=== PATIENT | female | born 1950 | race Caucasian/White ===

== ENCOUNTER 2020-12-05 11:22 | Emergency (ER) | payer MEDICAID, MEDICARE ==
--- NOTE | 2020-12-05 12:30 | EDM.PDOC ---
<Marily Chandra - Last Filed: 12/05/20 12:57> ED HPI GENERAL MEDICAL PROBLEM - General Chief Complaint: Head Injury Stated Complaint: FELL Time Seen by Provider: 12/05/20 12:05 Source of Information: Reports: Patient, Family History Limitations: Reports: No Limitations - History of Present Illness INITIAL COMMENTS - FREE TEXT/NARRATIVE: 70 year old female with history of bilateral total knee arthroplasty arrives with complaints of left knee pain. She reports that saturday night she was walking outside and tripped over an extension cord, fell forward onto her knees and then onto face. She has ecchymosis and edema over orbit of left eye and upper cheek on right side. Bruising to bilateral knees but no obvious swelling or deformity. She reports that she has been able to bare weight but has experienced some increases in the frequency that her knee "nirav". She takes a daily baby asa. No other anticoagulation. No neuro changes, patient is mentating at baseline per . Onset: Gradual Onset Date: 12/03/20 Duration: Day(s): Location: Reports: Lower Extremity, Left Quality: Reports: Ache, Other (buckleing when walking) Severity: Moderate Improves with: Reports: Rest Worsens with: Reports: Movement Context: Reports: Activity (was walking and tripped over extension cord) Associated Symptoms: Reports: No Other Symptoms Left Knee Pain Score (Numeric/FACES): 6 Left Headache Pain Score (Numeric/FACES): 5 - Related Data Allergies Allergy/AdvReac Type Severity Reaction Status Date / Time acetaminophen Allergy Other Verified 12/05/20 11:59 [From Darvocet-N] codeine Allergy Vomiting Verified 12/05/20 11:59 propoxyphene Allergy Other Verified 12/05/20 11:59 [From Darvocet-N] Home Meds: Home Meds Ciprofloxacin [Cipro XR 500 MG Tablet] 500 mg PO BID 12/05/20 [History] Past Medical History 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: Musculoskeletal History: Reports: Osteoporosis Neurological History: Reports: Neuropathy, Peripheral - Infectious Disease History Infectious Disease History: Reports: Chicken Pox, Measles, Mumps - Past Surgical History GI Surgical History: Reports: Appendectomy, Bariatric Procedure, Cholecystectomy Neurological Surgical History: Reports: Laminectomy, Spinal Fusion Musculoskeletal Surgical History: Reports: Hip Replacement, Knee Replacement, Shoulder Surgery Social & Family History - Tobacco Use Tobacco Use Status *Q: Never Tobacco User - Caffeine Use Caffeine Use: Reports: Soda - Recreational Drug Use Recreational Drug Use: No ED ROS GENERAL - Review of Systems Review Of Systems: See Below Constitutional: Reports: No Symptoms. Denies: Fever, Chills, Malaise, Weakness HEENT: Reports: No Symptoms Respiratory: Reports: No Symptoms. Denies: Shortness of Breath, Wheezing, Cough Cardiovascular: Reports: No Symptoms. Denies: Chest Pain, Palpitations, Syncope Endocrine: Reports: No Symptoms GI/Abdominal: Reports: No Symptoms. Denies: Abdominal Pain, Black Stool, Diarrhea, Nausea, Vomiting : Reports: No Symptoms Musculoskeletal: Reports: Muscle Pain, Other (left knee pain with ambulation) Skin: Reports: Bruising (bruising to bilateral knees, healing ) Neurological: Reports: No Symptoms. Denies: Confusion, Headache, Numbness, Trouble Speaking, Difficulty Walking, Weakness, Change in Speech, Gait Disturbance Psychiatric: Reports: No Symptoms Hematologic/Lymphatic: Reports: No Symptoms Immunologic: Reports: No Symptoms ED EXAM, HEAD INJURY - Physical Exam Exam: See Below Text/Narrative:: Phyllis is resting on cart, alert and oriented. skin is warm and dry. Respirations are regular and non labored. Ecchymosis and edema over left orbit and right upper cheek ecchymosis. erythema and small scabbed area to bridge of nose. pain with palpation over nasal bridge without obvious deformity, no bleeding. Bilateral knee bruising present without obvious deformities or edema. Pain with palpation over left medial knee without evidence of effusion, able to bare weight, and no pain with extension. 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 Pupils PERRL. Exam Limited By: No Limitations General Appearance: Alert, WD/WN, No Apparent Distress Head: Atraumatic Ears: Normal External Exam Nose: No Blood, Nasal Swelling (mild nasal swelling and tenderness, scab present on nasal bridge. ), Nasal Tenderness Throat/Mouth: Normal Inspection, Normal Teeth, No Airway Compromise Neck: Non-Tender, Full Range of Motion, Normal Inspection Respiratory: No Respiratory Distress, Lungs Clear, Normal Breath Sounds. No: Respiratory Distress, Wheezing Cardiovascular: Normal Peripheral Pulses, No Edema GI/Abdominal Exam: Soft, Non-Tender. No: Distended, Guarding (Female) Exam: Deferred Rectal (Female) Exam: Deferred Back Exam: Normal Inspection, Full Range of Motion Extremities: Other (bilateral knee bruising without obvioius deformity or significant edema. Hx of knee arthroplasty bilaterally. ) Neurologic: No Motor/Sensory Deficits, Alert, Oriented x 3 Skin: Normal Color, Warm/Dry - Meryl Coma Score Best Eye Response (Tower): (4) Open Spontaneously Best Verbal Response (Meryl): (5) Oriented Best Motor Response (Meryl): (6) Obeys Commands Course - Vital Signs Text/Narrative:: Patient agrees to knee xray, L side. Ordered, waiting for results at this time. Departure - Departure Disposition: Home, Self-Care 01 Condition: Good Clinical Impression: Knee sprain - Discharge Information Instructions: Hematoma, [id number], Knee Sprain, Adult Referrals: PCP,None [Primary Care Provider] - Forms: ED Department Discharge Care Plan Goals: The Xray of your knee was normal. You likely have strained a ligament on the inner part of your left knee. Strains do not show on xray. You can wear an dru wrap around that knee for comfort and support until it starts to heal. You should continue to use and strengthen your knee to decreased buckling. The bruising should continue to heal. Please return to the ER if you have any other falls resulting in injury or new concerning symptoms. You can use tylenol or ibuprofen for pain/discomfort. <Derick Astorga - Last Filed: 12/05/20 17:37> Departure - Departure Time of Disposition: 14:10 Attestation - Student - Attestation Statement Attestation Statement: I personally performed or re-performed the physical examination and medical decision making. I have verified all student documentation or findings, including history, physical exam and/or medical decision making.
--- NOTE | 2020-12-05 13:23 | CR ---
Knee 3V Lt CLINICAL HISTORY: Pain, fall FINDINGS: Patient is a 3 component total knee arthroplasty. Components appear well seated. No fracture seen Impression: Total knee arthroplasty appears intact No fracture
== END 2020-12-05 14:00 | disposition home or self-care (01) ==
LOC: JP.ED 11:22
DX: S83.92XA Sprain of unspecified site of left knee, initial encounter (principal); S83.91XA Sprain of unspecified site of right knee, initial encounter; Z88.5 Allergy status to narcotic agent; Z88.6 Allergy status to analgesic agent; W01.0XXA Fall on same level from slipping, tripping and stumbling without subsequent striking against object, initial encounter
CPT/HCPCS: 73562-26-LT; 73562-LT; 99283-25